=== PATIENT | female | born 1975 | race Caucasian/White ===

== ENCOUNTER → 2016-04-07 | Outpatient (CLI) | payer OTHER ==
--- NOTE | 2016-04-07 16:08 | KCIC ---
PROCEDURE MRI cervical spine without contrast. HISTORY Myoclonus, random jerking of the upper and lower extremities bilaterally for several months TECHNIQUE Sagittal axial T2, sagittal T1, sagittal STIR images were acquired of cervical spine Contrast: None COMPARISON None FINDINGS There is motion degradation. Cervical cord caliber is within normal limits without convincing focal signal abnormality allowing for motion artifact. Cervical vertebral body stature and AP alignment are preserved. There is no significant focal marrow edema. Intervertebral disc spaces are overall adequate. There is mild disc desiccation C3-4 to C5-C6. C2-3: Spinal canal and neural foramina are adequate. C3-4: There is negligible bulge. Neural foramina and spinal canal are adequate. C4-5: There is negligible posterior bulge. There is anterior annular tear. There is uncovertebral degenerative change greater on the right. There is minimal narrowing of the neural foramina bilaterally. There is mild to moderate left facet degenerative change. C5-C6: Spinal canal and neural foramina are adequate. C6-7: Spinal canal and neural foramina are adequate. C7-T1: Spinal canal and neural foramina are adequate. IMPRESSION 1. There is no significant cervical spinal stenosis. There is no convincing cervical cord signal abnormality allowing for artifact of the cord in part from motion. 2. There is mild neural foramina compromise at C4-5 in part from uncovertebral degenerative change. Electronically signed by: Scottie Harper MD (Apr 07, 2016 16:08:09)
== END | disposition home or self-care (01) ==
LOC: KCIC MRI 13:42
PROVIDERS: ATTEND Nurse Practitioner
DX: G25.3 Myoclonus (principal)
CPT/HCPCS: 72141